=== PATIENT | male | born 1975 | race African-American/Black ===

== ENCOUNTER 2018-06-10 12:09 | Emergency (ER) | payer BC ==
[2018-06-10] MEDS ORDERED: Cyclobenzaprine 10 MG Tab PO ONE (13:11)
[2018-06-10] MEDS ORDERED: Ketorolac 60 MG/2 ML SDV IM ONE (13:11)
--- NOTE | 2018-06-10 13:13 | EDM.PDOC ---
ED HPI GENERAL MEDICAL PROBLEM - General Chief Complaint: Back Pain or Injury Stated Complaint: BACK PAIN Time Seen by Provider: 06/10/18 13:00 Source of Information: Reports: Patient History Limitations: Reports: Language Barrier - History of Present Illness INITIAL COMMENTS - FREE TEXT/NARRATIVE: Patient is a 42-year-old male presents ED complaining of midline low back pain. Patient states yesterday the discomfort started after lifting a heavy chair. Pain is midline localized with no radiation. Rated a 7 out of 10. He has not taken any medications for the discomfort. Pain worse with movement and also palpation. He has no saddle anesthesia, incontinence to urine or stool, numbness or tingling, or weakness to his lower extremities. He has no prior history of back issues. He has no additional past medical history and currently taking no medications. Lower Back Pain Score (Numeric/FACES): 7 - Related Data Allergies Allergy/AdvReac Type Severity Reaction Status Date / Time No Known Allergies Allergy Verified 06/10/18 12:19 Home Meds: Home Meds Cyclobenzaprine [Flexeril] 10 mg PO TID PRN #15 tab 06/10/18 [Rx] Past Medical History - Past Health History Medical/Surgical History: Denies Medical/Surgical History Social & Family History - Family History Family Medical History: Noncontributory - Tobacco Use Smoking Status *Q: Never Smoker - Recreational Drug Use Recreational Drug Use: No ED ROS GENERAL - Review of Systems Review Of Systems: ROS reveals no pertinent complaints other than HPI. ED EXAM,LOWER BACK PAIN/INJURY - Physical Exam Exam: See Below Exam Limited By: No Limitations General Appearance: Alert, WD/WN, No Apparent Distress Ears: Hearing Grossly Normal Nose: Normal Inspection Throat/Mouth: Normal Voice, No Airway Compromise Neck: Normal Inspection, Supple Respiratory/Chest: No Respiratory Distress, Lungs Clear, Normal Breath Sounds, No Accessory Muscle Use, Chest Non-Tender Cardiovascular: Normal Peripheral Pulses, Regular Rate, Rhythm, No Murmur GI/Abdominal: Normal Bowel Sounds, Soft, Non-Tender, No Organomegaly, No Distention Extremities: Normal Inspection, Normal Range of Motion, Non-Tender, No Pedal Edema, Normal Capillary Refill Neurological: Alert, Normal Mood/Affect, Normal Dorsiflexion, CN II-XII Intact, Normal Plantar Flexion, No Motor/Sensory Deficits, Oriented x 3, Difficulty Walking (2nd to pain. ). No: Straight Leg Raise (L), Straight Leg Raise (R), Saddle Anesthesia Psychiatric: Normal Affect, Normal Mood Skin Exam: Warm, Dry, Intact, Normal Color Course - Vital Signs Last Recorded V/S: Last Vital Signs Temp 98.3 F 06/10/18 12:15 Pulse 66 06/10/18 12:15 Resp 15 06/10/18 12:15 BP 136/77 06/10/18 12:15 Pulse Ox 98 06/10/18 12:15 - Orders/Labs/Meds Meds: Medications Discontinued Medications Generic Name Dose Route Start Last Admin Trade Name Freq PRN Reason Stop Dose Admin Cyclobenzaprine HCl 10 mg 06/10/18 13:11 06/10/18 13:23 Flexeril PO 06/10/18 13:12 10 mg ONETIME ONE Administration Ketorolac Tromethamine 60 mg 06/10/18 13:11 06/10/18 13:23 Toradol IM 06/10/18 13:12 60 mg ONETIME ONE Administration - Re-Assessments/Exams Free Text/Narrative Re-Assessment/Exam: Utilized grader tender. Patient has midline back pain with no radiation, saddle anesthesia, or incontinence to urine/stool. He has not taken any medications for the pain. He has no history of GI bleed/ulcers. Ordered toradol 60mg IM and flexeril 10 mg po. Patient has a muscle strain to the low back. No imaging required at this time. Departure - Departure Time of Disposition: 13:41 Disposition: Home, Self-Care 01 Condition: Good Clinical Impression: Low back strain Qualifiers: Encounter type: initial encounter Qualified Code(s): S39.012A - Strain of muscle, fascia and tendon of lower back, initial encounter - Discharge Information *PRESCRIPTION DRUG MONITORING PROGRAM REVIEWED*: No *COPY OF PRESCRIPTION DRUG MONITORING REPORT IN PATIENT DEONDRE: No Prescriptions: Cyclobenzaprine [Flexeril] 10 mg PO TID PRN #15 tab PRN Reason: Spasms Instructions: Muscle Strain, Gbhk-[id number], Lumbosacral Strain, Back Injury Prevention Referrals: PCP,None [Primary Care Provider] - Forms: ED Department Discharge, ED Return to Work/School Form Additional Instructions: Refrain from any activities that cause worsening pain. Take Flexeril one tablet 3 times a day as needed for back spasms. Utilize Tylenol and ibuprofen in alternating fashion for discomfort. Utilize warm compresses and ice 3 times a day, 30 minutes in duration, in alternating fashion. Follow-up with PCP in the next 3-5 days for reevaluation. Return to the ED if you develop any new or worsening symptoms.
== END 2018-06-10 13:50 | disposition home or self-care (01) ==
LOC: JD.ED 12:09
DX: S39.012A Strain of muscle, fascia and tendon of lower back, initial encounter (principal); X50.0XXA Overexertion from strenuous movement or load, initial encounter
CPT/HCPCS: 96372; 99283; A9270; J1885

== ENCOUNTER 2019-08-30 13:28 | Emergency (ER) | payer BC ==
--- NOTE | 2019-08-30 14:13 | EDM.PDOC ---
ED HPI GENERAL MEDICAL PROBLEM - General Chief Complaint: Back Pain or Injury Stated Complaint: SLIPPED AND FELL ON BACK Time Seen by Provider: 08/30/19 14:05 Source of Information: Reports: Patient, RN, RN Notes Reviewed History Limitations: Reports: No Limitations - History of Present Illness INITIAL COMMENTS - FREE TEXT/NARRATIVE: Patient is a 43-year-old male who presents to our ED with lower back pain. He reports he reached into his car to warp picker a very heavy box, approximately 25 pounds, and immediately felt back pain and fell down. Denies any neck or head pain. Denies hitting head. Reports back pain is on the very low part of his back and is deep in his spine. Pain is worsened with movement but is constant. He was reportedly seen in our ED one year ago for similar back pain which occurred in a similar way. He took ibuprofen earlier but that has not helped. Denies any leg pain, numbness, or tingling. Denies any loss of bladder or bowel control. Denies any past medical history. Denies any medications. No known drug allergies. He does not have a primary care provider. Treatments MINE SAFETY DIRECTOR: Reports: Other (see below) Other Treatments MINE SAFETY DIRECTOR: motrin yesterday Lower Back Pain Score (Numeric/FACES): 8 - Related Data Allergies Allergy/AdvReac Type Severity Reaction Status Date / Time No Known Allergies Allergy Verified 06/10/18 12:19 Home Meds: Home Meds Cyclobenzaprine [Flexeril] 10 mg PO TID PRN #15 tab 08/30/19 [Rx] Past Medical History - Past Health History Medical/Surgical History: Denies Medical/Surgical History Other Musculoskeletal History: back issues Social & Family History - Family History Family Medical History: Noncontributory - Tobacco Use Smoking Status *Q: Never Smoker - Caffeine Use Caffeine Use: Reports: Coffee, Soda, Tea - Recreational Drug Use Recreational Drug Use: No ED ROS GENERAL - Review of Systems Review Of Systems: See Below Constitutional: Reports: No Symptoms. Denies: Fever, Chills, Malaise, Weakness HEENT: Reports: No Symptoms. Denies: Rhinitis Respiratory: Reports: No Symptoms. Denies: Shortness of Breath, Wheezing, Cough , Sputum Cardiovascular: Reports: No Symptoms. Denies: Chest Pain, Edema Endocrine: Reports: No Symptoms GI/Abdominal: Reports: No Symptoms. Denies: Abdominal Pain, Constipation, Diarrhea, Nausea, Vomiting : Reports: No Symptoms Musculoskeletal: Reports: Back Pain Skin: Reports: No Symptoms. Denies: Cyanosis Neurological: Reports: No Symptoms. Denies: Confusion Psychiatric: Reports: No Symptoms Hematologic/Lymphatic: Reports: No Symptoms Immunologic: Reports: No Symptoms ED EXAM,LOWER BACK PAIN/INJURY - Physical Exam Exam: See Below Exam Limited By: No Limitations General Appearance: Alert, WD/WN, No Apparent Distress Respiratory/Chest: No Respiratory Distress, Lungs Clear, Normal Breath Sounds, No Accessory Muscle Use, Chest Non-Tender Cardiovascular: Normal Peripheral Pulses, Regular Rate, Rhythm, No Edema, No Gallop, No JVD, No Murmur, No Rub Back Exam: Normal Inspection, Decreased Range of Motion (2/2 pain ), Vertebral Tenderness. No: Muscle Spasm, Paraspinal Tenderness Extremities: Normal Inspection, Normal Range of Motion, Non-Tender, No Pedal Edema, Normal Capillary Refill Skin Exam: Warm, Dry, Intact Course - Vital Signs Last Recorded V/S: Last Vital Signs Temp 97.5 F 08/30/19 13:46 Pulse 63 08/30/19 13:46 Resp 20 08/30/19 13:46 BP 130/78 08/30/19 13:46 Pulse Ox 100 08/30/19 13:46 - Orders/Labs/Meds Meds: Medications Discontinued Medications Generic Name Dose Route Start Last Admin Trade Name Freq PRN Reason Stop Dose Admin Ketorolac Tromethamine 60 mg 08/30/19 14:21 08/30/19 14:28 Toradol IM 08/30/19 14:22 60 mg ONETIME ONE Administration - Re-Assessments/Exams Free Text/Narrative Re-Assessment/Exam: additional orders will include IM Toradol and lumbar spine x-ray. Reviewed lumbar spine x-ray with Dr. Prince Hess, provider on calling acute is appreciated. formal read is pending. 08/30/19 14:32 formal read back from Dr. Moreno, radiologist. Throat impression: 1. Scattered Schmorl's node deformities throughout the lower thoracic and lumbar spine. 2. Two-view lumbar spine study is otherwise unremarkable." 08/30/19 15:33 Discussed plan with patient and he agrees to plan. Discussed concerns over muscle relaxant, as patient reports he has no one available to drive him. We' ll therefore give him prescription Flexeril and advise him not to drive. 08/30/19 15:43 Departure - Departure Time of Disposition: 15:45 Disposition: Home, Self-Care 01 Condition: Good Clinical Impression: Low back strain Qualifiers: Encounter type: initial encounter Qualified Code(s): S39.012A - Strain of muscle, fascia and tendon of lower back, initial encounter - Discharge Information *PRESCRIPTION DRUG MONITORING PROGRAM REVIEWED*: No *COPY OF PRESCRIPTION DRUG MONITORING REPORT IN PATIENT DEONDRE: No Prescriptions: Cyclobenzaprine [Flexeril] 10 mg PO TID PRN #15 tab PRN Reason: Back musle tightness Instructions: Low Back Sprain Referrals: PCP,None [Primary Care Provider] - Forms: ED Department Discharge, ED Return to Work/School Form Additional Instructions: You were seen in our ED today for lower back pain which occurred after attempting to remove a box from the back seat of your car. Your back x-ray looked good. Recommend you take Tylenol and ibuprofen for pain. You may alternate these and follow the green hide inspector is dosing guidelines. Also recommend hot pack the applied to your lower back. Be careful not to burn yourself. You were sent a medication to relax your back muscles. You may take this up to 3 times a day as needed. It is recommended you do not drive well taking this medication. You should remain home from work until .
[2019-08-30] MEDS ORDERED: Ketorolac 60 MG/2 ML SDV IM ONE (14:21)
--- NOTE | 2019-08-30 15:12 | CR ---
Lumbar spine: AP and lateral viewsof the lumbar spine were obtained. Vertebral bodies and disc spaces are maintained. Diffuse Schmorl's node deformities are seen within the lower thoracic and lumbar spine. Pedicles are intact. Visualized transverse and spinous processes are intact. No subluxation or fracture is seen. Impression: 1. Scattered Schmorl's node deformities throughout the lower thoracic and lumbar spine. 2. Two-view lumbar spine study is otherwise unremarkable. Diagnostic code #2
== END 2019-08-30 16:05 | disposition home or self-care (01) ==
LOC: JD.ED 13:28
DX: S39.012A Strain of muscle, fascia and tendon of lower back, initial encounter (principal); X50.0XXA Overexertion from strenuous movement or load, initial encounter; W19.XXXA Unspecified fall, initial encounter; Y93.89 Activity, other specified; Y92.810 Car as the place of occurrence of the external cause
CPT/HCPCS: 72100; 96372; 99283; J1885

== ENCOUNTER 2020-05-05 09:57 | Emergency (ER) | payer BC, OTHER, SELFPAY ==
--- NOTE | 2020-05-05 11:18 | EDM.PDOC ---
ED HPI GENERAL MEDICAL PROBLEM - General Chief Complaint: Skin Complaint Stated Complaint: ISSUE WITH ARM Time Seen by Provider: 05/05/20 10:47 Source of Information: Reports: Patient History Limitations: Reports: No Limitations - History of Present Illness INITIAL COMMENTS - FREE TEXT/NARRATIVE: Patient is a 44-year-old male who presents to the emergency department with complaints of an itchy, abrasion area the ventral aspect of his right wrist. He states that this lesion emerged a few days ago. He is concerned because every few months he will get an area similar to this that itches, bleeds, and then scabs. The lesions generally resolve within a week or so. He denies any purulent drainage from these lesions. He does not have any known allergies and has not changed soaps or hygiene products recently. 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 He has not tried any [id number] antihistamines or steroids. He has tried applying aloe to the area. He has not seen a provider previously for this condition. - Related Data Allergies Allergy/AdvReac Type Severity Reaction Status Date / Time No Known Allergies Allergy Verified 06/10/18 12:19 Home Meds: Home Meds Cyclobenzaprine [Flexeril] 10 mg PO TID PRN #15 tab 08/30/19 [Rx] Past Medical History - Past Health History Medical/Surgical History: Denies Medical/Surgical History Other Musculoskeletal History: back issues Social & Family History - Family History Family Medical History: Noncontributory - Tobacco Use Smoking Status *Q: Never Smoker Second Hand Smoke Exposure: No - Caffeine Use Caffeine Use: Reports: Coffee, Soda - Recreational Drug Use Recreational Drug Use: No ED ROS GENERAL - Review of Systems Review Of Systems: See Below Constitutional: Reports: No Symptoms. Denies: Fever, Chills, Weakness, Fatigue HEENT: Reports: No Symptoms Respiratory: Reports: No Symptoms Cardiovascular: Reports: No Symptoms Endocrine: Reports: No Symptoms GI/Abdominal: Reports: No Symptoms : Reports: No Symptoms Musculoskeletal: Reports: No Symptoms Skin: Reports: Pruritis, Lesions Neurological: Reports: No Symptoms Psychiatric: Reports: No Symptoms Hematologic/Lymphatic: Reports: No Symptoms Immunologic: Reports: No Symptoms ED EXAM, SKIN/RASH Exam: See Below Exam Limited By: No Limitations General Appearance: Alert, WD/WN, No Apparent Distress Respiratory/Chest: No Respiratory Distress, Lungs Clear, Normal Breath Sounds, No Accessory Muscle Use, Chest Non-Tender Cardiovascular: Normal Peripheral Pulses, Regular Rate, Rhythm, No Edema, No Gallop, No JVD, No Murmur, No Rub Neurological: Alert, Oriented, CN II-XII Intact, Normal Cognition, Normal Gait, Normal Reflexes, No Motor/Sensory Deficits Skin: Warm, Dry, Other (two 0.25 cm open areas with scabbing present to the ventral aspect of the right wrist. No redness, swelling, or drainage present.) Associated features: No: Warmth, Tenderness, Swelling, Scaling, Inflammation, Weeping Course - Vital Signs Last Recorded V/S: Last Vital Signs Temp 96.7 F L 05/05/20 10:24 Pulse 66 05/05/20 10:24 Resp 14 05/05/20 10:24 BP 133/84 05/05/20 10:24 Pulse Ox 97 05/05/20 10:24 - Re-Assessments/Exams Free Text/Narrative Re-Assessment/Exam: 05/05/20 11:17 Discussed the differential of bug bites versus possible allergy to something he is coming in contact with. Recommend that he purchase [id number] hydrocortisone cream and a apply it to the area twice daily until it resolves. I did discuss that if he continues to develop areas such as this, I would recommend that he follow-up in the clinic for ongoing management. Discussed that a dermatology referral may be needed at some point if this condition continues. He is in agreement with this plan. Departure - Departure Time of Disposition: 11:17 Disposition: Home, Self-Care 01 Condition: Good Clinical Impression: Dermatitis - Discharge Information *PRESCRIPTION DRUG MONITORING PROGRAM REVIEWED*: No *COPY OF PRESCRIPTION DRUG MONITORING REPORT IN PATIENT DEONDRE: No Referrals: PCP,None [Primary Care Provider] - Additional Instructions: You were seen in the emergency department today for an itchy, scabbed lesion to your right wrist. As we discussed, it is possible that you have come in contact with something that you are allergic to, or this may be related to a bug bite of some type. I would recommend that you purchase hydrocortisone cream 1% [id number] and apply this twice daily to the area. This will help with the itching. Recommend that you try your best to not scratch the area as this will increase the possibility of infection. If this becomes an ongoing occurrence for you, I would recommend that you follow-up in the clinic to establish care with a primary care provider and discuss the possibility of the need for a referral to dermatology. The number to schedule an appointment in the clinic is [phone]. Return to the ER as needed. Sepsis Event Note (ED) - Evaluation Sepsis Screening Result: No Definite Risk - Focused Exam Vital Signs: Vital Signs Temp Pulse Resp BP Pulse Ox 05/05/20 10:24 96.7 F L 66 14 133/84 97
== END 2020-05-05 11:38 | disposition home or self-care (01) ==
LOC: JD.ED 09:57
DX: L30.9 Dermatitis, unspecified (principal)
CPT/HCPCS: 99282

== ENCOUNTER 2020-10-23 11:41 | Emergency (ER) | payer BC, OTHER, SELFPAY ==
--- NOTE | 2020-10-23 13:06 | EDM.PDOC ---
ED HPI GENERAL MEDICAL PROBLEM - General Chief Complaint: Skin Complaint Stated Complaint: Generalized itching Time Seen by Provider: 10/23/20 12:50 Source of Information: Reports: Patient History Limitations: Reports: No Limitations - History of Present Illness INITIAL COMMENTS - FREE TEXT/NARRATIVE: 44-year-old male presents to the ED for evaluation of generalized pruritus. Patient reports that he has had itchy skin off and on for the last 3 to 4 years. Of note patient [place] Recently the itching has worsened to the extent that he is unable to sleep at night due to continuous feeling of need to scratch. He has scratch napier on his left upper back and shoulder and both upper arms. Patient is concerned that he may have underlying cancer. He reports no loss of appetite no change in weight and is otherwise healthy. Patient currently is unemployed. He does shower once daily usually in the mornings. Denies any excessive bathing. He does not put any lotions or creams on his skin. Onset: Other (Problem just worse the last 3 to 4 days interfering with sleep.) Duration: Chronic (3 to 4 years.) Location: Reports: Generalized (Relies pruritus particularly upper arms shoulders upper back and neck. Also appreciates dryness of skin thighs and a nterior tib-fib's.) Quality: Reports: Other (Generalized pruritus) Improves with: Reports: None Worsens with: Reports: None Context: Denies: Activity, Exercise, Lifting, Sick Contact, Trauma, Other Associated Symptoms: Reports: Rash (Feels a deep itch under the his skin.). 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 10/23/20 [Rx] hydrOXYzine pamoate [Vistaril] 50 mg PO BEDTIME #12 cap 10/23/20 [Rx] predniSONE [Prednisone] 20 mg PO BID #15 tablet 10/23/20 [Rx] Past Medical History - Past Health History Medical/Surgical History: Denies Medical/Surgical History Other Musculoskeletal History: back issues Social & Family History - Family History Family Medical History: No Pertinent Family History - Tobacco Use Tobacco Use Status *Q: Never Tobacco User - Caffeine Use Caffeine Use: Reports: None - Recreational Drug Use Recreational Drug Use: No - Living Situation & Occupation Living situation: Reports: Single Occupation: Unemployed ED ROS GENERAL - Review of Systems Review Of Systems: See Below Constitutional: Reports: Fatigue ( from not sleeping well.). Denies: Fever, Chills, Malaise, Weakness, Night Sweats, Diaphoresis, Decreased Appetite, Weight Loss, Weight Gain HEENT: Reports: No Symptoms Respiratory: Reports: No Symptoms Cardiovascular: Reports: No Symptoms Endocrine: Reports: No Symptoms GI/Abdominal: Reports: No Symptoms : Reports: No Symptoms Musculoskeletal: Reports: No Symptoms Skin: Reports: Pruritis (Is pruritus worse in his upper arms shoulders and legs.) Neurological: Reports: No Symptoms Psychiatric: Reports: No Symptoms Hematologic/Lymphatic: Reports: No Symptoms Immunologic: Reports: No Symptoms ED EXAM, SKIN/RASH Exam: See Below Exam Limited By: No Limitations General Appearance: Alert, WD/WN, Anxious, Other (Temperature is 36.2 heart rate 71 and sinus respiratory is 12 with O2 sats 100% room air BP 125/88.) Eye Exam: Bilateral Eye: Normal Inspection (No scleral icterus or blepharal pallor.), PERRL Throat/Mouth: Normal Inspection, Normal Lips, Normal Oropharynx Neck: Normal Inspection, Supple, Non-Tender, Full Range of Motion. No: Lymphadenopathy (L), Lymphadenopathy (R), Thyromegaly Respiratory/Chest: No Respiratory Distress, Lungs Clear, Normal Breath Sounds, No Accessory Muscle Use Cardiovascular: Normal Peripheral Pulses, Regular Rate, Rhythm, No Edema, No Gallop, No Murmur, No Rub Extremities: Other (Patient has excoriations from scratching particularly left upper back posterior shoulder. He has pityriasis keratitis both upper arms. Skin is dry without any scaling.) Neurological: Alert, Oriented, CN II-XII Intact, Normal Cognition Psychiatric: Normal Affect, Normal Mood Skin: Warm, Dry, Intact, Normal Color, Excoriations (Left upper back and shoulder area upper arms.) Location, Skin: Back (Her back and posterior shoulders.), Upper Extremity, Right, Upper Extremity, Left, Generalized Characteristics: Other (No definitive rash appreciated.) Course - Vital Signs Last Recorded V/S: Last Vital Signs Temp 36.2 C 10/23/20 12:23 Pulse 71 10/23/20 12:23 Resp 12 10/23/20 12:23 BP 125/88 10/23/20 12:23 Pulse Ox 100 10/23/20 12:23 - Radiology Interpretation Free Text/Narrative:: 44-year-old male who originates from [facility] a tropical climate presents to the ED for evaluation of pruritic skin which he has had off and on for the last 3 or 4 years. Patient reports that is much worse the last for 5 days with itching so bad at nighttime he cannot sleep. Patient showers daily. He has no other signs and symptoms of illness. Exam reveals excoriations left upper posterior shoulder compound with scratching. He has clinically dry skin or dyshidrosis. Patient treated with CeraVe lotion to be applied to all pruritic areas once daily at bedtime. Will be given Atarax 50 mg at bedtime x12 tablets to help sleep. Short course of prednisone 20 mg twice daily for 5 days and then 20 mg once daily in the morning for 5 days to give him acute relief of itching. Advised to not use any soap other than hypoallergenic soaps such as Dove or Ivory as needed. No excessive bathing to further dry out his skin. Departure - Departure Time of Disposition: 13:00 Disposition: Home, Self-Care 01 Condition: Fair Clinical Impression: Pruritic rash, Dyshidrotic dermatitis Eczema Qualifiers: Eczema type: unspecified Qualified Code(s): L30.9 - Dermatitis, unspecified - Discharge Information *PRESCRIPTION DRUG MONITORING PROGRAM REVIEWED*: Not Applicable *COPY OF PRESCRIPTION DRUG MONITORING REPORT IN PATIENT DEONDRE: Not Applicable Prescriptions: Ceramides 1,3,6-11 [Cerave Moisturizing] 453 gm TP DAILY #1 cream..g. predniSONE [Prednisone] 20 mg PO BID #15 tablet hydrOXYzine pamoate [Vistaril] 50 mg PO BEDTIME #12 cap Instructions: Eczema Referrals: PCP,None [Primary Care Provider] - Forms: ED Department Discharge Additional Instructions: Evaluation in the emergency room today in regards to generalized pruritus particular involving his upper extremities i.e. upper arms shoulders and upper back and neck. He states he has had this problem off and on for the last 3 years. Of note the patient is originally from [place] in a [place] climate. Over the last 3 to 4 days the itching has become so severe at nighttime it has interfered with your ability to sleep. On examination there is evidence of scratching due to severe itch particularly upper back and shoulders. This is all secondary to severe dry skin which we called dyshidrosis. Treatment is to rehydrate the skin as much as possible. Recommend CeraVe cream/lotion at least once daily usually at bedtime where will soak into the skin for 6 to 8 hours. Apply this to all areas that are itching. I also prescribed Atarax 50 mg tablet at bedtime which will cause sedation and relief of itch take only at bedtime or an hour before planned bedtime. Prednisone 20 mg twice daily with breakfast and supper for 5 days and then once daily in the morning only for 5 days will relieve the itch fairly promptly within a couple of days. However the skin needs to be rehydrated aggressively otherwise the problem is a chronic 1 and will be worse in winter months in [place] due to low humidity Sepsis Event Note (ED) - Evaluation Sepsis Screening Result: No Definite Risk - Focused Exam Vital Signs: Vital Signs Temp Pulse Resp BP Pulse Ox 10/23/20 12:23 36.2 C 71 12 125/88 100
== END 2020-10-23 13:33 | disposition home or self-care (01) ==
LOC: JD.ED 11:41
DX: L29.9 Pruritus, unspecified (principal); L30.1 Dyshidrosis [pompholyx]
CPT/HCPCS: 99282

== ENCOUNTER 2025-05-04 13:16 | Emergency (ER) | payer OTHER ==
[2025-05-04] MEDS: Ketorolac 60 MG/2 ML SDV IM ONE (14:10)
== END 2025-05-04 15:38 | disposition home or self-care (01) ==
LOC: JD.ED 13:16
DX: R51.9 Headache, unspecified (principal); M25.561 Pain in right knee; M25.562 Pain in left knee; R07.9 Chest pain, unspecified
CPT/HCPCS: 70450; 71045; 72125; 73562; 96372; 99284; J1885